=== PATIENT | female | born 1995 | race American Indian/Alaskan Native ===

== ENCOUNTER 2020-01-13 11:00 | Emergency (ER) | payer SELFPAY ==
[2020-01-13] MEDS ORDERED: IBUPROFEN 600 MG TAB PO ONE ×2 (11:42→11:44)
--- NOTE | 2020-01-13 11:43 | Event Note ---
ED Screening Note Date of service: 01/13/20 Time: 11:41 ED Screening Note: 24 y o female presents with pelvic pain x yeterdat LMP 01/08/20 no current vaginal bleed + dysuria This initial assessment/diagnostic orders/clinical plan/treatment(s) is/are subject to change based on patients health status, clinical progression and re- assessment by fellow clinical providers in the ED. Further treatment and workup at subsequent clinical providers discretion. Patient/guardian urged not to elope from the ED as their condition may be serious if not clinically assessed and managed. Initial orders include: ua.upt acc minerva velasquez in traige
[2020-01-13 12:07] LABS: Bacteria,Urine 1+ /HPF (Negative); Bilirubin,Urine NEG (Negative); Blood,Urine MOD (Negative); Color,Urine Yellow (Yellow); HCG Qualitative,Urine Negative (Negative); Mucus,Urine FEW /HPF; Protein,Urine <15 mg/dL mg/dL (Negative)
[2020-01-13] MEDS ORDERED: ONDANSETRON 4 MG/2 ML INJ IV ONE (16:40)
[2020-01-13] MEDS ORDERED: MORPHINE 4 MG/1 ML INJ IV ONE (16:40)
--- NOTE | 2020-01-13 16:49 | Emergency Department Report ---
<REYNALDO COVINGTON - Last Filed: 01/13/20 16:44> ED Abdominal Pain HPI - General Chief Complaint: Abdominal Pain Stated Complaint: N/V Time Seen by Provider: 01/13/20 15:34 Source: patient Mode of arrival: Ambulatory Limitations: No Limitations - History of Present Illness Initial Comments: 24-year-old -Japanese female patient presents with complaints of sudden onset of lower abdominal pain since yesterday. She reports a tactile fever and chills and sweats. She denies any urinary symptoms, diarrhea, vomiting, melena/hematochezia, or previous abdominal surgeries. She rates her current pain as a 10/10 in severity and describes as a pressure. Patient also denies any vaginal bleeding/discharge/dyspareunia or concern for STIs. Severity scale (0 -10): 7 - Related Data Previous Rx's Medication Instructions Recorded Last Taken Type Ciprofloxacin HCl [Ciprofloxacin 500 mg PO Q12HR #20 tab 01/14/20 Unknown Rx TAB] Dicyclomine [Bentyl] 20 mg PO Q6H PRN #30 tablet 01/14/20 Unknown Rx Famotidine [Pepcid] 20 mg PO Q12H #30 tablet 01/14/20 Unknown Rx Ondansetron [Zofran Odt] 4 mg PO Q6HR PRN #20 tab.rapdis 01/14/20 Unknown Rx metroNIDAZOLE [Flagyl] 500 mg PO Q8HR #30 tablet 01/14/20 Unknown Rx traMADoL [Ultram] 50 mg PO Q6HR PRN #12 tablet 01/14/20 Unknown Rx Allergies Allergy/AdvReac Type Severity Reaction Status Date / Time No Known Allergies Allergy Unverified 01/13/20 11:13 ED Review of Systems Constitutional: chills, fever, malaise, weakness ENT: denies: throat pain Respiratory: denies: cough, shortness of breath Cardiovascular: denies: chest pain Endocrine: denies: excessive sweating Gastrointestinal: abdominal pain, nausea. denies: vomiting, diarrhea, constipation, hematemesis, melena, hematochezia Musculoskeletal: denies: back pain, joint swelling, arthralgia Skin: denies: rash, lesions Neurological: denies: headache Hematological/Lymphatic: denies: easy bleeding, swollen glands ED Past Medical Hx - Past Medical History Previous Medical History?: No - Surgical History Past Surgical History?: No - Social History Smoking Status: Current Every Day Smoker Substance Use Type: Alcohol, Marijuana - Medications Home Medications: Home Medications Medication Instructions Recorded Confirmed Last Taken Type Ciprofloxacin HCl [Ciprofloxacin 500 mg PO Q12HR #20 tab 01/14/20 Unknown Rx TAB] Dicyclomine [Bentyl] 20 mg PO Q6H PRN #30 tablet 01/14/20 Unknown Rx Famotidine [Pepcid] 20 mg PO Q12H #30 tablet 01/14/20 Unknown Rx Ondansetron [Zofran Odt] 4 mg PO Q6HR PRN #20 tab.rapdis 01/14/20 Unknown Rx metroNIDAZOLE [Flagyl] 500 mg PO Q8HR #30 tablet 01/14/20 Unknown Rx traMADoL [Ultram] 50 mg PO Q6HR PRN #12 tablet 01/14/20 Unknown Rx ED Physical Exam - General Limitations: No Limitations General appearance: alert, in no apparent distress, other (Appears uncomfortab le) - Head Head exam: Present: atraumatic, normocephalic - Eye Eye exam: Present: normal appearance - ENT ENT exam: Present: mucous membranes moist - Neck Neck exam: Present: normal inspection - Respiratory Respiratory exam: Present: normal lung sounds bilaterally. Absent: respiratory distress - Cardiovascular Cardiovascular Exam: Present: regular rate, normal rhythm. Absent: systolic murmur, diastolic murmur, rubs, gallop - GI/Abdominal GI/Abdominal exam: Present: soft, tenderness (RLQ, suprapubic, and LLQ), guarding. Absent: distended, rebound, rigid, normal bowel sounds - Extremities Exam Extremities exam: Present: normal inspection - Back Exam Back exam: Present: normal inspection - Neurological Exam Neurological exam: Present: alert, oriented X3 - Psychiatric Psychiatric exam: Present: normal affect, normal mood - Skin Skin exam: Present: warm, dry, intact, normal color. Absent: rash, cyanosis, diaphoretic, erythema ED Disposition Clinical Impression: Abdominal pain, lower, Acute colitis, Acute urinary tract infection, Nausea and vomiting in adult, Fever and chills Disposition: - TO HOME OR SELFCARE Condition: Stable Instructions: Abdominal Pain (ED), Infectious Colitis (ED), Fever in Adults (ED), Urinary Tract Infection in Women (ED) Additional Instructions: Take medications with food, drink plenty of fluids and follow-up with your primary care physician in 7 to 10 days for reevaluation. Return to the ED immediately if symptoms get worse. Prescriptions: Dicyclomine [Bentyl] 20 mg PO Q6H PRN #30 tablet PRN Reason: Pain , Severe (7-10) Ciprofloxacin HCl [Ciprofloxacin TAB] 500 mg PO Q12HR #20 tab metroNIDAZOLE [Flagyl] 500 mg PO Q8HR #30 tablet Famotidine [Pepcid] 20 mg PO Q12H #30 tablet traMADoL [Ultram] 50 mg PO Q6HR PRN #12 tablet PRN Reason: Pain Ondansetron [Zofran Odt] 4 mg PO Q6HR PRN #20 tab.rapdis PRN Reason: Nausea Referrals: SHAWNEE WEINSTEIN MD [Staff Physician] - 7-10 days Forms: Work/School Release Form(ED) Print Language: KINYARWANDA <IRIS YOUSSEF - Last Filed: 01/14/20 00:05> ED Review of Systems ROS: Stated complaint: N/V Other details as noted in HPI ED Course Vital Signs 01/13/20 01/13/20 01/13/20 11:36 11:45 19:25 Temperature 99.9 F H 100.0 F H Pulse Rate 111 H 115 H Respiratory 18 18 18 Rate Blood Pressure 106/60 Blood Pressure [Left] Blood Pressure 100/54 [Right] O2 Sat by Pulse 100 100 Oximetry 01/13/20 23:11 Temperature 98.7 F Pulse Rate 88 Respiratory 17 Rate Blood Pressure Blood Pressure 104/58 [Left] Blood Pressure [Right] O2 Sat by Pulse 98 Oximetry ED Medical Decision Making - Lab Data Result diagrams: 01/13/20 16:57 01/13/20 16:57 - Radiology Data Radiology results: report reviewed, image reviewed Findings [facility] [address] [place] [address] Cat Scan Report Signed Patient: XAVIER PENA MR#: [id number] : 1995 Acct:[id number] Age/Sex: 24 / F ADM Date: 01/13/20 Loc: ED Attending Dr: Ordering Physician: REYNALDO COVINGTON Date of Service: 01/13/20 Procedure(s): CT abdomen pelvis w con Accession Number(s): [id number] cc: REYNALDO COVINGTON CT ABDOMEN AND PELVIS WITH IV CONTRAST INDICATION: lower abdominal pain, fever. COMPARISON: None available. TECHNIQUE: Axial CT images were obtained through the abdomen and pelvis after 100 mL IV contrast. All CT scans at this location are performed using CT dose reduction for ALARA by means of automated exposure control. FINDINGS -- ABDOMEN: Lung Bases: No acute abnormality. Liver: Normal. Gallbladder: Normal. Bile Ducts: Normal. Pancreas: Normal. Spleen: Normal. Adrenals: Normal. Right Kidney and Proximal Ureter: Normal. Left Kidney and Proximal Ureter: Normal. Stomach and Bowel: Normal. Lymph Nodes: No significant adenopathy. Aorta: No significant abnormality. IVC: Normal. Additional Findings: None. FINDINGS -- PELVIS: Urinary Bladder and Distal Ureters: Normal. Reproductive Organs: Several small follicles and cysts are present within both ovaries. Fibroid uterus. Appendix: Not well identified. An appendiceal process cannot be excluded.. Bowel: Much of the colon is fairly collapsed but there is some transmural thickening/mucosal thickening involving much of the large bowel. There is also some transmural thickening involving the terminal ileum. Free Fluid: Tiny free pelvic fluid.. Lymph Nodes: No significant adenopathy. Additional Findings: None. Skeletal System: No acute abnormality. IMPRESSION: Diffuse colitis with probable enteritis of the terminal ileum. Small free pelvic fluid, nonspecific but possibly physiologic. Fibroid uterus. Signer Name: Clyde Parker MD Signed: 01/13/2020 6:57 PM Workstation Name: [id number] Transcribed By: BC Dictated By: Clyde Parker MD Electronically Authenticated By: Clyde Parker MD Signed Date/Time: 01/13/201856 DD/ 53 TD/TT: - Medical Decision Making I assumed care of the patient from Ms. Reynaldo Covington ALVAREZ at shift change at 1900 hrs. This is a 24-year-old female who presented to the ED with diffuse abdominal pain for 24 hours. Patient also had low-grade fever with nausea and vomiting. In the ED, patient is alert and oriented x3 and is not in distress. Lab test results were reviewed and are all nonactionable including lactic acid but urinalysis showed mild urinary tract infection. The abdomen pelvis CT scan with contrast showed diffuse colitis with probable enteritis of the terminal ileum. Small free pelvic fluid, nonspecific but possibly physiologic. Fibroid uterus. Patient was treated for pain in the ED and also received normal saline 1 L IV bolus in as well as 1 L lactated Ringer's solution IV bolus x1. Patient was treated for nausea and vomiting and pain in the ED. Patient also received Levaquin 500 mg p.o. x1 and Flagyl 500 mg IV x1. On reevaluation, patient's pain is well controlled with medications. Patient's tachycardia and fever also resolved. Patient was discharged home on antibiotics, antiemetics and pain medications and was advised to follow-up with her primary care physician in 5 to 7 days for reevaluation or return to the ED immediately if symptoms get worse. Patient symptoms are likely due to the acute colitis based on the history, physical exam findings as well as lab test results and imaging report. Other differential diagnoses were also considered including acute appendicitis, ovarian cyst, colitis, diverticulitis, small bowel obstruction, peritonitis, UTI, PID as well as fibroid uterus. - Differential Diagnosis Appendicitis; Colitis; UTI; Ovarian cyst; Peritonitis; SBO; PID Critical care attestation.: If time is entered above; I have spent that time in minutes in the direct care of this critically ill patient, excluding procedure time. ED Disposition Is pt being admited?: No Does the pt Need Aspirin: No Time of Disposition: 00:02
[2020-01-13 17:09] LABS: Basophils % (Auto) 0.1 % (0.0-1.8); Hematocrit 39.4 % (30.3-42.9); Hemoglobin 13.4 gm/dl (10.1-14.3); Lymphocytes # (Auto) 0.8 K/mm3 (1.2-5.4); Lymphocytes % (Auto) 8.6 % (13.4-35.0); Mean Corpuscular HGB Conc 34 % (30-34); Mean Corpuscular Volume 86 fl (79-97); Monocytes # (Auto) 0.2 K/mm3 (0.0-0.8); Monocytes % (Auto) 2.1 % (0.0-7.3); Platelet Count 197 K/mm3 (140-440); Red Blood Count 4.57 M/mm3 (3.65-5.03); Red Cell Distribution Width 13.5 % (13.2-15.2)
[2020-01-13] MEDS ORDERED: SODIUM CHLORIDE 0.9% 1000 ML 1,000 ML IV ONE (17:24)
[2020-01-13 17:27] LABS: BUN/Creatinine Ratio 12; Blood Urea Nitrogen 7 mg/dL (7-17); Calcium 9.2 mg/dL (8.4-10.2); Hemolysis Index 3
[2020-01-13 17:31] LABS: Albumin 4.2 g/dL (3.9-5); Bilirubin,Direct 0.5 mg/dL (0-0.2)
--- NOTE | 2020-01-13 19:01 | Cat Scan Report ---
CT ABDOMEN AND PELVIS WITH IV CONTRAST INDICATION: lower abdominal pain, fever. COMPARISON: None available. TECHNIQUE: Axial CT images were obtained through the abdomen and pelvis after 100 mL IV contrast. All CT scans a t this location are performed using CT dose reduction for ALARA by means of automated exposure contro l. FINDINGS -- ABDOMEN: Lung Bases: No acute abnormality. Liver: Normal. Gallbladder: Normal. Bile Ducts: Normal. Pancreas: Normal. Spleen: Normal. Adrenals: Normal. Right Kidney and Proximal Ureter: Normal. Left Kidney and Proximal Ureter: Normal. Stomach and Bowel: Normal. Lymph Nodes: No significant adenopathy. Aorta: No significant abnormality. IVC: Normal. Additional Findings: None. FINDINGS -- PELVIS: Urinary Bladder and Distal Ureters: Normal. Reproductive Organs: Several small follicles and cysts are present within both ovaries. Fibroid uteru s. Appendix: Not well identified. An appendiceal process cannot be excluded.. Bowel: Much of the colon is fairly collapsed but there is some transmural thickening/mucosal thickening involving much of the large bowel. There is also some transmural thickening involving the terminal ileum. Free Fluid: Tiny free pelvic fluid.. Lymph Nodes: No significant adenopathy. Additional Findings: None. Skeletal System: No acute abnormality. IMPRESSION: Diffuse colitis with probable enteritis of the terminal ileum. Small free pelvic fluid, nonspecific b ut possibly physiologic. Fibroid uterus. Signer Name: Clyde Parker MD Signed: 01/13/2020 6:57 PM Workstation Name: [id number] [email or web address]
[2020-01-13] MEDS ORDERED: KETOROLAC 30 MG/1 ML INJ IV ONE (19:27)
[2020-01-13] MEDS ORDERED: dexAMETHasone 20 MG/5 ML VIAL IV ONE (19:27)
[2020-01-13] MEDS ORDERED: LACTATED RINGERS 1,000 ML IV ONE (19:30)
[2020-01-13] MEDS ORDERED: levoFLOXacin 500 MG TAB PO ONE (19:31)
[2020-01-13] MEDS ORDERED: metroNIDAZOLE/NS 500 MG/100 ML 500 MG/100 ML BAG IV NR (20:00)
[2020-01-13 23:12] VITALS: BP 104/58
== END 2020-01-14 00:38 | disposition home or self-care (01) ==
LOC: ED 11:00
DX: K52.89 Other specified noninfective gastroenteritis and colitis (principal); N39.0 Urinary tract infection, site not specified; R11.2 Nausea with vomiting, unspecified; F17.200 Nicotine dependence, unspecified, uncomplicated; F12.10 Cannabis abuse, uncomplicated; Z79.899 Other long term (current) drug therapy
CPT/HCPCS: 36415; 74177; 80048; 80076; 81001; 81025; 82140; 83690; 85025; 87040; 87086; 96361; 96365; 96375; 99284; J1100; J1885; J2270; J2405; J7030; J7120; Q9967